=== PATIENT | male | born 2005 | race Hispanic/Latino ===

== ENCOUNTER 2023-04-16 21:27 | Emergency (ER) | payer SELFPAY ==
[~2023-04-16] VITALS: Ht 170.2 cm; Wt 108.9 kg
[2023-04-16 21:36] VITALS: BP 153/87; PULSE 89; RESP 18; TEMP 97.5; O2SAT 96
[2023-04-16] MEDS ORDERED: TORADOL IM STA (21:44)
[2023-04-16] MEDS ORDERED: TORADOL ONE (21:48)
[2023-04-16 22:35] VITALS: BP 150/86; PULSE 89; RESP 18; TEMP 97.5; O2SAT 96
[2023-04-16 22:43] LABS: BASOPHIL % 0.4 % (0.0-0.2); EOSINOPHIL % 0.4 % (0.0-5.0); HEMATOCRIT(ML) 41.4 % (37.0-53.0); HEMOGLOBIN 13.8 g/dL (13.2-15.6); IG % 0.2 % (0.00-0.50); LYMPHOCYTES # 2.47 10^3/uL1 (1.2-5.2); LYMPHOCYTES % 24.8 % (24.0-44.0); MEAN CORP HGB 29.7 pg (26-34); MEAN CORP HGB CONCENTRATION 33.3 g/dL (33-36.5); MONOCYTES # 0.8 10^3/uL (0.0-0.4); MONOCYTES % 7.5 % (5.0-12.0); NEUTROPHIL # 6.6 10^3/uL (1.8-8.0); NEUTROPHILS % 66.7 % (41.0-85.0); RED BLOOD CELL 4.65 10^6/uL (4.50-5.90); WHITE BLOOD CELL 9.9 10^3/uL (4.5-12.5)
[2023-04-16 22:50] LABS: ANION GAP 15.3; BUN/CREATININE RATIO 14.45 (10.0-20.0); CALCIUM 9.6 mg/dL (8.4-10.5); CARBON DIOXIDE 25.2 mmol/L (20.0-32); CREATININE SERUM 0.83 mg/dL (0.59-1.40); EST GFR, NON-AA 119.4 (>/=60); POTASSIUM 3.5 mmol/L (3.6-5.2)
[2023-04-16 22:57] LABS: INR 0.9; PROTHROMBIN PROTIME 9.8 SEC (9.7-11.6)
[2023-04-16] MEDS ORDERED: ROCEPHIN IM STA (23:18)
[2023-04-16] MEDS ORDERED: ROCEPHIN ONE (23:25)
[2023-04-16] MEDS ORDERED: LIDOCAINE 1% VIAL ONE (23:25)
[2023-04-16 23:38] VITALS: BP 142/79; PULSE 83; RESP 18; TEMP 97.5; O2SAT 96
== END 2023-04-16 23:41 | disposition home or self-care (01) ==
LOC: ER 21:27
DX: N45.1 Epididymitis (principal)
CPT/HCPCS: 99285; 93976; 96372; 76870; 85025; 36415; 80048; 85610; 85730; J2001; J1885; J0696